=== PATIENT | male | born 1990 | race Caucasian/White ===

== ENCOUNTER 2021-12-25 13:25 | Emergency (ER) | payer SELFPAY ==
[~2021-12-25] VITALS: Ht 170.2 cm; Wt 72.7 kg
[2021-12-25] MEDS ORDERED: OxyCODONE HCL/ACETAMINOPHEN 5-325 MG TABLET PO ONE (13:45)
[2021-12-25] MEDS ORDERED: LIDOCAINE 1% 20 ML VIAL IARTIC ONE (15:15)
[2021-12-25] MEDS ORDERED: LIDOCAINE 1% 10 ML VIAL IARTIC ONE (15:30)
[2021-12-25 15:44] VITALS: BP 118/81
== END 2021-12-25 18:39 | disposition home or self-care (01) ==
LOC: EMS 13:28
DX: S43.005A Unspecified dislocation of left shoulder joint, initial encounter (principal); X58.XXXA Exposure to other specified factors, initial encounter; Y93.89 Activity, other specified; Y92.89 Other specified places as the place of occurrence of the external cause; Y99.8 Other external cause status
CPT/HCPCS: 99284; 23650; 73200; 73030; J3490 ×2